=== PATIENT | female | born 1980 | race Asian ===

== ENCOUNTER 2017-09-01 07:30 | Inpatient (IN) | payer SELFPAY ==
[2017-08-31 09:53] LABS: BASOPHILS # (AUTO) 0.1 K/uL (0.00-0.22); BASOPHILS % (AUTO) 0.9 % (0.0-2.0); EOSINOPHILS # (AUTO) 0.1 K/uL (0-0.4); HEMATOCRIT 37.1 % (36-48); HEMOGLOBIN 12.1 g/dL (12.0-16.0); LYMPHOCYTES # (AUTO) 1.8 K/uL (2.5-16.5); MEAN CORPUSCULAR HEMOGLOBIN 27 pg (27-31); MEAN CORPUSCULAR HGB CONC 33 g/dL (33-37); MEAN CORPUSCULAR VOLUME 84 fL (80-94); MONOCYTES # (AUTO) 0.4 K/uL (0.8-1.0); MONOCYTES % (AUTO) 5.6 % (1.7-9.3); NEUTROPHILS # (AUTO) 4.1 K/uL (1.8-7.7); NEUTROPHILS % (AUTO) 65.5 % (42.2-75.2); PLATELET COUNT (AUTO) 245 K/uL (140-450); RED BLOOD CELL COUNT(AUTO) 4.45 MIL/uL (4.20-5.40); RED CELL DISTRIBUTION WIDTH 13.9 % (11.6-13.7); WHITE BLOOD COUNT (AUTO) 6.5 K/uL (4.8-10.8)
[2017-08-31 10:55] LABS: APPEARANCE,URINE CLEAR (CLEAR); BILIRUBIN,URINE NEGATIVE (NEGATIVE); BLOOD, URINE NEGATIVE (NEGATIVE); COLOR,URINE YELLOW (YELLOW); LEUKOCYTE ESTERASE ,URINE NEGATIVE (NEGATIVE); NITRITE, URINE NEGATIVE (NEGATIVE); PH,URINE 6.5 (5.0-9.0); UGLUCOSE NEGATIVE (NEGATIVE)
[~2017-09-01] VITALS: Ht 160 cm; Wt 73.9 kg
[2017-09-01] MEDS: OXYTOCIN 20 UNITS in LACTATED RINGERS 1,000 ML IV SCH ×2 (07:55→23:47)
[2017-09-01] MEDS ORDERED: LACTATED RINGERS 1,000 ML IV SCH (09:35)
[2017-09-01 10:59] VITALS: BP 108/69
[2017-09-01] MEDS ORDERED: INFLUENZA VIRUS VACCINE QUAD 0.5 ML SYR IMVAC SCH (11:05)
[2017-09-01] MEDS ORDERED: MORPHINE PRES FREE 10 MG/10 ML AMP IV ONE (11:10)
[2017-09-01] MEDS ORDERED: MIDAZOLAM 2 MG/2 ML VIAL ONE (11:10)
[2017-09-01] MEDS ORDERED: METHYLERGONOVINE 0.2 MG/ML AMP ONE (11:43)
[2017-09-01] MEDS ORDERED: MEASLES, MUMPS, AND RUBELLA 1 VIAL SQVAC PRN (12:00)
[2017-09-01] MEDS ORDERED: METHYLERGONOVINE 0.2 MG/ML AMP IM PRN (12:00)
[2017-09-01] MEDS ORDERED: TEMAZEPAM 15 MG CAP PO PRN (12:00)
[2017-09-01] MEDS ORDERED: TRIMETHOBENZAMIDE 200 MG/2 ML SYR IM PRN (12:00)
[2017-09-01] MEDS ORDERED: IBUPROFEN 800 MG TAB PO PRN (12:00)
[2017-09-01] MEDS ORDERED: ONDANSETRON 4 MG/2 ML VIAL IVP PRN (12:05)
[2017-09-01] MEDS ORDERED: KETOROLAC 30 MG/ML VIAL IVP PRN (12:05)
[2017-09-01] MEDS ORDERED: diphenhydrAMINE 50 MG/ML VIAL IVP PRN (12:05)
[2017-09-01] MEDS ORDERED: OXYTOCIN 20 UNITS/LR PREMIX 1,000 ML IV ONE (13:03)
[2017-09-01] MEDS: DOCUSATE SOD/SENNA 50/8.6 MG 1 TAB PO SCH (20:39)
[2017-09-02 06:30] LABS: BASOPHILS % (AUTO) 0.2 % (0.0-2.0); EOSINOPHILS # (AUTO) 0.1 K/uL (0-0.4); EOSINOPHILS % (AUTO) 0.6 % (0.0-4.0); HEMATOCRIT 31.8 % (36-48); HEMOGLOBIN 10.5 g/dL (12.0-16.0); LYMPHOCYTES # (AUTO) 1.1 K/uL (2.5-16.5); LYMPHOCYTES % (AUTO) 8.9 % (20.5-51.1); MEAN CORPUSCULAR HEMOGLOBIN 28 pg (27-31); MEAN CORPUSCULAR HGB CONC 33 g/dL (33-37); MEAN CORPUSCULAR VOLUME 85 fL (80-94); MONOCYTES # (AUTO) 0.7 K/uL (0.8-1.0); MONOCYTES % (AUTO) 5.3 % (1.7-9.3); NEUTROPHILS # (AUTO) 10.4 K/uL (1.8-7.7); PLATELET COUNT (AUTO) 199 K/uL (140-450); RED BLOOD CELL COUNT(AUTO) 3.74 MIL/uL (4.20-5.40); RED CELL DISTRIBUTION WIDTH 13.7 % (11.6-13.7); WHITE BLOOD COUNT (AUTO) 12.3 K/uL (4.8-10.8)
[2017-09-02] MEDS ORDERED: OXYTOCIN 10 UNITS/ML VIAL ONE (07:56)
[2017-09-02] MEDS: SIMETHICONE 80 MG TAB.CHEW PO SCH ×2 (08:42→12:59)
--- NOTE | 2017-09-02 10:10 | NUR ---
PATIENT HAS BEEN SCREENED AND CATEGORIZED LOW NUTRITION RISK. PATIENT WILL BE SEEN WITHIN 7 DAYS OF ADMISSION. 09/08/[address]
[2017-09-02] MEDS: oxyCODONE/APAP 5/325 MG 1 TAB TAB PO PRN ×2 (10:16→19:00)
[2017-09-02] MEDS ORDERED: OXYTOCIN 10 UNITS/ML VIAL IM ONE (11:00)
[2017-09-02] MEDS ORDERED: ePHEDrine 50 MG/ML VIAL IV ONE (11:00)
[2017-09-02] MEDS ORDERED: ONDANSETRON 4 MG/2 ML VIAL IVP ONE (11:00)
[2017-09-02] MEDS: DOCUSATE SOD/SENNA 50/8.6 MG 1 TAB PO SCH (21:34)
[2017-09-03] MEDS: oxyCODONE/APAP 5/325 MG 1 TAB TAB PO PRN (09:03)
[2017-09-03] MEDS: HYDROcodone/APAP 5/325 MG 1 TAB TAB PO PRN ×2 (11:12→20:11)
[2017-09-03] MEDS ORDERED: IBUP-2213 PO (14:59)
[2017-09-03] MEDS ORDERED: ACET1TAB93 PO (15:02)
== END 2017-09-03 22:20 | disposition home or self-care (01) | DRG 766 ==
LOC: MLD 09:03 → MFCC 10:40
PROVIDERS: ADMIT Obstetrics & Gynecology; ATTEND Obstetrics & Gynecology
PROC: 10D00Z1 Extraction of Products of Conception, Low, Open Approach (ICD-10-PCS; principal; 2017-09-01 10:00)
DX: O34.211 Maternal care for low transverse scar from previous cesarean delivery (principal); Z28.21 Immunization not carried out because of patient refusal; Z3A.38 38 weeks gestation of pregnancy; Z37.0 Single live birth
CPT/HCPCS: 36415; 81003; 85025; 86592; 86886; 86900; 86901; J0690; J1885; J2210; J2250; J2270; J2405; J2590; J7060; J7120